=== PATIENT | female | born 1965 | race Caucasian/White ===

== ENCOUNTER 2016-12-01 13:38 | Emergency (ER) | payer OTHER ==
[2016-12-01 13:44] VITALS: TEMP 97.2; BMI 27.4
--- NOTE | 2016-12-01 14:17 | PDOC ---
History of Present Illness <Ugo Ayala - Last Filed: 12/01/16 17:12> - History of Present Illness Initial Comments: 12/01/16 16:19 Patient is a 51 year old female with no significant medical hx who is presenting to the ED with two days of right hand numbness. Patient complains of numbness localized to her right hand, specifically her right fourth and fifth fingers, with radiation that extends up her mid forearm. The patient states that the numbness worsens in the morning and gets better as the day goes on. Denies recent trauma, headache, lightheadedness, dizziness, shortness of breath , and chest pain. <Nelia Hamilton - Last Filed: 12/01/16 17:21> - General Chief Complaint: Lightheaded Stated Complaint: DIZZINESS Time Seen by Provider: 12/01/16 14:16 Past History - Past Medical History Other medical history: DENIES. - Psycho/Social/Smoking Cessation Hx Suicidal Ideation: No Smoking History: Never smoked <Ugo Ayala - Last Filed: 12/01/16 17:12> <Nelia Hamilton - Last Filed: 12/01/16 17:21> - Past Medical History Allergies/Adverse Reactions: Allergies Allergy/AdvReac Type Severity Reaction Status Date / Time Penicillins Allergy Intermediate Rash Verified 12/01/16 13:41 Home Medications: Ambulatory Orders NK [No Known Home Medication] 12/01/16 Review of Systems - Review of Systems Comments:: 12/01/16 16:21 GENERAL/CONSTITUTIONAL: No fever or chills. No weakness. HEAD, EYES, EARS, NOSE AND THROAT: No change in vision. No ear pain or discharge. No sore throat. CARDIOVASCULAR: No chest pain or shortness of breath. RESPIRATORY: No cough, wheezing, or hemoptysis. GASTROINTESTINAL: No nausea, vomiting, diarrhea or constipation. GENITOURINARY: No dysuria, frequency, or change in urination. MUSCULOSKELETAL: No joint or muscle swelling or pain. No neck or back pain. SKIN: No rash NEUROLOGIC: Right hand and forearm numbness. No headache, vertigo, loss of consciousness, or change in strength. <Nelia Hamilton - Last Filed: 12/01/16 17:21> *Physical Exam - Vital Signs Last Vital Signs Temp Pulse Resp BP Pulse Ox 97.2 F L 74 19 130/75 100 12/01/16 13:41 12/01/16 13:41 12/01/16 13:41 12/01/16 13:41 12/01/16 13:41 <Ugo Ayala - Last Filed: 12/01/16 17:12> - Vital Signs Last Vital Signs Temp Pulse Resp BP Pulse Ox 97.2 F L 74 19 130/75 100 12/01/16 13:41 12/01/16 13:41 12/01/16 13:41 12/01/16 13:41 12/01/16 13:41 - Physical Exam Comments: 12/01/16 16:22 GENERAL: Awake, alert, and fully oriented, in no acute distress HEAD: No signs of trauma EYES: PERRLA, EOMI, sclera anicteric, conjunctiva clear ENT: Auricles normal inspection, hearing grossly normal, nares patent, oropharynx clear without exudates. Moist mucosa NECK: Normal ROM, supple, no lymphadenopathy, JVD, or masses LUNGS: Breath sounds equal, clear to auscultation bilaterally. No wheezes, and no crackles HEART: Regular rate and rhythm, normal S1 and S2, no murmurs, rubs or gallops ABDOMEN: Soft, nontender, normoactive bowel sounds. No guarding, no rebound. No masses EXTREMITIES: Normal range of motion, no edema. No clubbing or cyanosis. No cords, erythema, or tenderness NEUROLOGICAL: Cranial nerves II through XII grossly intact. Normal speech, normal gait SKIN: Warm, Dry, normal turgor, no rashes or lesions noted. ENDOCRINE: No increased thirst. No abnormal weight change. HEMATOLOGIC/LYMPHATIC: No anemia, easy bleeding, or history of blood clots. ALLERGIC/IMMUNOLOGIC: No hives or skin allergy. <Nelia Hamilton - Last Filed: 12/01/16 17:21> ED Treatment Course - LABORATORY CBC & Chemistry Diagram: 12/01/16 14:45 12/01/16 14:45 <Ugo Ayala - Last Filed: 12/01/16 17:12> - LABORATORY CBC & Chemistry Diagram: 12/01/16 14:45 12/01/16 14:45 - ADDITIONAL ORDERS Additional order review: Laboratory Results 12/01/16 12/01/16 14:45 14:45 INR 1.20 H Sodium 143 Potassium 3.9 Chloride 108 H Carbon Dioxide 28 Anion Gap 7 L BUN 18 Creatinine 0.6 Creat Clearance w eGFR > 60 Random Glucose 83 Calcium 9.1 Total Bilirubin 0.4 AST 12 L ALT 21 Alkaline Phosphatase 81 Creatine Kinase 66 Troponin I < 0.02 Total Protein 7.1 Albumin 3.9 12/01/16 14:45 RBC 4.20 MCV 91.5 MCHC 33.2 RDW 13.4 MPV 8.3 Neutrophils % 60.8 Lymphocytes % 25.5 Monocytes % 9.0 Eosinophils % 3.9 Basophils % 0.8 - RADIOLOGY Radiograph Interpretation: 12/01/16 17:19 Chest X-Ray Impression: No acute disease. Reported By: Russel Mcwilliams MD Head CT Impression: No evidence of acute intracranial pathology. Reported By: Russel Mcwilliams MD Cervical Spine CT Impression: See discussion. No gross disc herniation or spinal canal stenosis is identified. Correlate clinically and if needed further evaluation with MRI of the cervical spine with the study of choice. Reported By: Blair Villafuerte MD <Nelia Hamilton - Last Filed: 12/01/16 17:21> *DC/Admit/Observation/Transfer - Discharge Dispostion Admit: No - Attestations Physician Attestion: 12/01/16 14:16 I, Dr. Ugo Ayala, attest that this document has been prepared under my direction and personally reviewed by me in its entirety. I further attest, that it accurately reflects all work, treatment, procedures and medical decision -making performed by me. <Ugo Ayala - Last Filed: 12/01/16 17:12> - Attestations Scribe Attestion: 12/01/16 16:22 Documentation prepared by Nelia Hamilton, acting as medical reception specialist for Ugo Ayala MD. <Nelia Hamilton - Last Filed: 12/01/16 17:21> Diagnosis at time of Disposition: Paresthesia - Discharge Dispostion Disposition: HOME Condition at time of disposition: Good - Referrals Referrals: Laith Pretty MD [Primary Care Provider] - - Patient Instructions Printed Discharge Instructions: DI for Numbness/tingling Additional Instructions: Maha - Sorry that you are experiencing this right now. All of your tests here today are normal.. Follow up with your doctor later this week so that they can complete an outpatient work up. Return to us if any problems. Desmond- Dr. Ugo Ayala
[2016-12-01 15:03] LABS: BASOPHIL 0.8 % (0-2.0); EOSINOPHIL 3.9 % (0-4.5); MCH 30.4 pg (25.7-33.7); MCHC 33.2 g/dl (32.0-36.0); MEAN CELL VOLUME 91.5 fl (80-96); MEAN PLT VOLUME 8.3 fl (7.5-11.1); NEUTROPHILS 60.8 % (42.8-82.8); PLATELET COUNT 196 K/MM3 (134-434); RDW 13.4 % (11.6-15.6); WHITE BLOOD COUNT 6.7 K/mm3 (4.0-10.0)
[2016-12-01 15:29] LABS: ALBUMIN 3.9 g/dl (3.4-5.0); ANION GAP 7 (8-16); BILIRUBIN,TOTAL 0.4 mg/dL (0.2-1.0); CALCIUM 9.1 mg/dL (8.5-10.1); CO2 28 mmol/L (21-32); CREATININE 0.6 mg/dL (0.55-1.02); GLUCOSE,RANDOM 83 mg/dL (74-106); SGOT/AST 12 U/L (15-37); SGPT/ALT 21 U/L (12-78); TOT PROT 7.1 g/dl (6.4-8.2)
[2016-12-01 15:32] LABS: ALK PHOS 81 U/L (45-117); TROPONIN I < 0.02 ng/ml (0.00-0.05)
[2016-12-01 15:38] LABS: INR 1.2 (0.82-1.09); PROTHROMBIN TIME (PATIENT) 13.2 SEC (9.98-11.88)
[2016-12-01 17:30] VITALS: BP 121/61; PULSE 70
--- NOTE | 2016-12-02 16:41 | EKG ---
Test Reason : Blood Pressure : / mmHG Vent. Rate : 049 BPM Atrial Rate : 049 BPM P-R Int : 154 ms QRS Dur : 078 ms QT Int : 450 ms P-R-T Axes : 070 048 050 degrees QTc Int : 406 ms SINUS BRADYCARDIA OTHERWISE NORMAL ECG NO PREVIOUS ECGS AVAILABLE Confirmed by MD MOMO, NESS ([id number]) on 12/02/2016 4:40:40 PM Referred By: Confirmed By:NESS BARR MD
== END 2016-12-01 17:27 | disposition home or self-care (01) ==
LOC: JER 13:38
DX: R20.8 Other disturbances of skin sensation (principal)
CPT/HCPCS: 36415; 70450-TC; 71010-TC; 72125-TC; 80053; 82550; 84484; 85025; 85610; 93005; 93010; 99283-25

== ENCOUNTER 2018-07-04 20:56 | Emergency (ER) | payer OTHER ==
[2018-07-04 21:06] VITALS: BP 140/78; PULSE 78; TEMP 97.2; BMI 26.9
--- NOTE | 2018-07-04 21:16 | PDOC ---
Rapid Medical Evaluation Chief Complaint: Lightheaded Time Seen by Provider: 07/04/18 21:04 Medical Evaluation: Allergies Allergy/AdvReac Type Severity Reaction Status Date / Time Penicillins Allergy Intermediate Rash Verified 12/14/16 20:53 Vital Signs Temp Pulse Resp BP Pulse Ox 97.2 F L 78 16 140/78 99 07/04/18 21:04 07/04/18 21:04 07/04/18 21:04 07/04/18 21:04 07/04/18 21:04 07/04/18 21:06 I have performed a brief in-person evaluation of this patient. The patient presents with a chief complaint of:h/o anxiety disorder and HTN present with left flank pain and dizziness started 3 days ago and worsening today. no N/V Pertinent physical exam findings: patient hyperventilating . abd : soft NT/ND. no flank pain on exam. no rebound or guarding. heart: RRR. no murmurs. lungs: CTA I have ordered the following:UA/Ucx. utox. KUB The patient will proceed to the ED for further evaluation. 07/04/18 21:11 Discharge Disposition - Diagnosis Left flank discomfort - Referrals Referrals: Laith Pretty MD [Primary Care Provider] - - Patient Instructions - Post Discharge Activity
[2018-07-04] MEDS ORDERED: SODIUM CHLORIDE 1,000 ML IV STA (21:38)
[2018-07-04] MEDS ORDERED: MECLIZINE HCL 25 MG TABLET (FP) PO ONE (21:39)
[2018-07-04] MEDS ORDERED: MECLIZINE HCL 25 MG TABLET (FP) ONE (21:46)
--- NOTE | 2018-07-04 21:57 | PDOC ---
History of Present Illness - General Chief Complaint: Lightheaded Stated Complaint: Lightheaded Time Seen by Provider: 07/04/18 21:04 History Source: Patient, Old Records Exam Limitations: No Limitations - History of Present Illness Initial Comments: 07/04/18 21:51 HISTORY OF PRESENT ILLNESS: 52-year-old woman past medical history of hypertension and anxiety who presents emergency Department with 3 days of dizziness. Patient states she was in her usual state of health until 07/01 when she began to experience a room spinning sensation or "like I was standing on a boat." Patient states the symptoms have waxed and waned over the 3 days but have never completely resolved. Patient states she also has left flank pain which started approximately same time as the dizziness. Patient states she has similar episode approximately 5 months ago was evaluated by her primary doctor who obtained a CAT scan and MRI which the patient states were normal. Patient has been prescribed nadolol but has not been taking her medications as she does not get a restful sleep. She denies fevers, chills, headaches, blurry vision, chest pain, shortness of breath, nausea, vomiting. No recent travel or sick contacts. PAST MEDICAL HISTORY: hypertension and anxiety SURGICAL HISTORY: Denies ALLERGIES: penicillin REVIEW OF SYSTEMS General/Constitutional: Denies fever or chills. Denies weakness, weight change. HEENT: Denies change in vision. Denies ear pain or discharge. Denies sore throat. Cardiovascular: Denies chest pain or shortness of breath. Respiratory: Denies cough, wheezing, or hemoptysis. Gastrointestinal: Denies nausea, vomiting, diarrhea or constipation. Denies rectal bleeding. Genitourinary: Denies dysuria, frequency, or change in urination. +Left flank pain. Musculoskeletal: Denies joint or muscle swelling or pain. Denies neck or back pain. Skin and breasts: Denies rash or easy bruising. Neurologic: Denies headache, loss of consciousness, or loss of sensation. + Vertigo Psychiatric: Denies depression or anxiety. Endocrine: Denies increased thirst. Denies abnormal weight change. Hematologic/Lymphatic: Denies anemia, easy bleeding, or history of blood clots. Allergic/Immunologic: Denies hives or skin allergy. Denies latex allergy. PHYSICAL EXAM General Appearance: Well-appearing, appropriately dressed. No apparent distress , no intoxication. HEENT: EOMI, PERRLA, normal ENT inspection, normal voice, TMs normal, pharynx normal. No conjunctival pallor. No photophobia, scleral icterus. Neck: Supple. Trachea midline. No tenderness, rigidity, carotid bruit, stridor , lymphadenopathy, or thyromegaly. Respiratory/Chest: Lungs CTAB. No shortness of breath, respiratory distress, accessory muscle use. No crackles, rales, rhonchi, stridor, wheezing, dullness. Left anterior 7th rib chest tenderness Cardiovascular: RRR. S1, S2. No JVD, murmur, bradycardia, tachycardia. Vascular Pulses: Dorsalis-Pedis (R): 2+, Dorsalis-Pedis (L): 2+ Gastrointestinal/Abdominal: Normal bowel sounds. Abdomen soft, non-distended. No tenderness or rebound tenderness. No organomegaly, pulsatile mass, guarding, hernia, hepatomegaly, splenomegaly. Lymphatic: No adenopathy, tenderness. Musculoskeletal/Extremities: Normal inspection. FROM of all extremities, normal capillary refill. Pelvis Stable. No CVA tenderness. No tenderness to extremities, pedal edema, swelling, erythema or deformity. Integumentary: Appropriate color, dry, warm. No cyanosis, erythema, jaundice or rash Neurologic: public message service supervisor II-XII intact. Fully oriented, alert. Appropriate mood/affect. Motor strength 5/5. No appreciable EOM palsy, facial droop or sensory deficit. Negative Dunlap-Hallpike. Past History - Past Medical History Allergies/Adverse Reactions: Allergies Allergy/AdvReac Type Severity Reaction Status Date / Time Penicillins Allergy Intermediate Rash Verified 07/04/18 21:11 Home Medications: Ambulatory Orders Meclizine HCl [Antivert -] 25 mg PO QID #120 tablet 07/05/18 COPD: No - Suicide/Smoking/Psychosocial Hx Smoking History: Never smoked Have you smoked in the past 12 months: No Information on smoking cessation initiated: No Hx Alcohol Use: No Drug/Substance Use Hx: No *Physical Exam - Vital Signs Last Vital Signs Temp Pulse Resp BP Pulse Ox 97.2 F L 78 16 140/78 99 07/04/18 21:04 07/04/18 21:04 07/04/18 21:04 07/04/18 21:04 07/04/18 21:04 Heart Score/ECG Review - History History: Slightly suspicious - Electrocardiogram EKG: Normal - Age Age: 45-65 - Risk Factors Risk Factors Heart Score: Yes Hx Hypertension Based on the list above the patient has:: 1-2 risk factors - Troponin Troponin: </= normal limit - Score Heart Score - Total: 2 ED Treatment Course - LABORATORY CBC & Chemistry Diagram: 07/04/18 22:15 07/04/18 23:59 - RADIOLOGY Radiology Studies Ordered: Category Date Time Status CHEST X-RAY PORTABLE* [RAD] Stat Radiology 07/04/18 21:38 Ordered Medical Decision Making - Medical Decision Making 07/04/18 21:57 A/P: 52-year-old woman with history of anxiety and hypertension with 3 days of dizziness and left flank pain PERRLA. EOMI Cranial nerves II through XII grossly intact Steady gait Negative Dunlap-Hallpike No nystagmus present Left anterior 7th rib TTP Abdomen soft nontender nondistended DDx: Infection, renal calculi, ACS, vertigo, arrhythmia Labs including cardiac profile, urine, EKG, chest x-ray, meclizine, normal saline 07/04/18 23:06 Chest x-rays read by me: Angles clear. No focal infiltrates consolidations present. Cardiac silhouette is within normal limits. Trachea midline. No active pulmonary disease present. No significant change from x-ray performed 12/01/16. 07/05/18 01:07 EKG is sinus rhythm with rate of 56. No ST depressions or ST elevations noted. No T-wave inversions noted. Normal intervals present. Grossly unchanged from EKG performed 12/01/16. Laboratory testing unremarkable with normal troponin. Patient is currently free of dizziness after receiving 1 L fluids and meclizine. Most likely BPPV. I will discharge the patient home with prescription for meclizine and instructions to follow-up with her primary doctor within 7 days. Patient verbalizes understanding of instructions and is in agreement with the current plan. *DC/Admit/Observation/Transfer Diagnosis at time of Disposition: BPPV (benign paroxysmal positional vertigo) Qualifiers: Laterality: unspecified laterality Qualified Code(s): H81.10 - Benign paroxysmal vertigo, unspecified ear - Discharge Dispostion Disposition: HOME Condition at time of disposition: Fair Decision to Admit order: No - Prescriptions Prescriptions: Meclizine HCl [Antivert -] 25 mg PO QID #120 tablet - Referrals Referrals: Laith Pretty MD [Primary Care Provider] - - Patient Instructions Additional Instructions: Keep well-hydrated. Take meclizine 25 mg 4 times a day as needed for dizziness. Take Tylenol or Motrin as needed for pain. Follow manufacture's instructions for appropriate dosage. Make an appointment with your primary doctor for reevaluation within the next 7 days. Return to the emergency department for worsening dizziness, headaches, blurry vision, nausea, vomiting or any other concerns. Thank you very much for choosing us to provide your emergent health care needs. - Post Discharge Activity
[2018-07-04 22:32] LABS: BASO % 0.7 % (0-2.0); HEMATOCRIT 39.6 % (32.4-45.2); HEMOGLOBIN 13.4 GM/dL (10.7-15.3); LYMPH % 29.8 % (8-40); MCHC 33.8 g/dl (32.0-36.0); MEAN CELL VOLUME 91.9 fl (80-96); MEAN PLT VOLUME 9.9 fl (7.5-11.1); MONO % 8.7 % (3.8-10.2); NEUT % 56.8 % (42.8-82.8); PLATELET COUNT 273 K/MM3 (134-434); RBC 4.31 M/mm3 (3.60-5.2); RDW 12.9 % (11.6-15.6); WHITE BLOOD COUNT 6.6 K/mm3 (4.0-10.0)
[2018-07-04 22:37] LABS: URINE APPEARANCE CLEAR; URINE BILIRUBIN NEGATIVE (<2.0 mg/dL); URINE COLOR LTYELLOW; URINE GLUCOSE (UA) NEGATIVE (NEGATIVE); URINE KETONE NEGATIVE (NEGATIVE); URINE NITRITE NEGATIVE (NEGATIVE); URINE PROTEIN NEGATIVE (NEGATIVE); URINE UROBILINOGEN NEGATIVE mg/dL (0.2-1.0)
[2018-07-04 22:39] LABS: HCG,QUALITATIVE URINE Negative
[2018-07-04 22:43] LABS: COCAINE, UR NEGATIVE ng/ml (CUTOFF=300); METHADONE, UR NEGATIVE ng/ml (CUTOFF=300); OPIATES, URI NEGATIVE ng/ml (CUTOFF=300); PHENCYCLIDINE,URINE NEGATIVE ng/ml (CUTOFF=25); URINE AMPHETAMINES NEGATIVE ng/ml (CUTOFF=500); URINE BARBITURATES NEGATIVE ng/ml (CUTOFF=200); URINE BENZODIAZEPINES NEGATIVE ng/ml (CUTOFF=200)
[2018-07-04 22:43] LABS: URINE LEUK ESTERASE 1+ (NEGATIVE)
[2018-07-04 22:54] LABS: EPI CELLS RARE /HPF (FEW); URINE BACTERIA RARE /hpf (NONE SEEN)
[2018-07-05 00:38] LABS: INR 1.25 (0.83-1.09); PROTHROMBIN TIME (PATIENT) 14.1 SEC (9.7-13.0)
[2018-07-05 00:56] LABS: ALBUMIN 3.3 g/dl (3.4-5.0); ALK PHOS 77 U/L (45-117); ANION GAP 6 MMOL/L (8-16); BILIRUBIN,TOTAL 0.2 mg/dL (0.2-1); BLOOD UREA NITROGEN 15 mg/dL (7-18); CALCIUM 8.5 mg/dL (8.5-10.1); CHLORIDE 112 mmol/L (98-107); CO2 25 mmol/L (21-32); CREATININE 0.6 mg/dL (0.55-1.3); GLUCOSE,RANDOM 120 mg/dL (74-106); POTASSIUM 3.8 mmol/L (3.5-5.1); SGOT/AST 13 U/L (15-37); SGPT/ALT 15 U/L (13-61); SODIUM 143 mmol/L (136-145); TOT PROT 6.4 g/dl (6.4-8.2)
--- NOTE | 2018-07-05 09:34 | EKG ---
Test Reason : Blood Pressure : / mmHG Vent. Rate : 056 BPM Atrial Rate : 056 BPM P-R Int : 174 ms QRS Dur : 074 ms QT Int : 420 ms P-R-T Axes : 065 042 043 degrees QTc Int : 405 ms POOR DATA QUALITY, INTERPRETATION MAY BE ADVERSELY AFFECTED SINUS BRADYCARDIA LOW VOLTAGE QRS NONSPECIFIC T WAVE ABNORMALITY ABNORMAL ECG WHEN COMPARED WITH ECG OF 04-JUL-2018 20:56, VENT. RATE HAS DECREASED BY 33 BPM Confirmed by SAI BENITEZ MD ([id number]) on 07/05/2018 9:33:48 AM Referred By: Confirmed By:SAI BENITEZ MD
== END 2018-07-05 01:18 | disposition home or self-care (01) ==
LOC: JER 20:56
PROC: 3E0337Z Introduction of Electrolytic and Water Balance Substance into Peripheral Vein, Percutaneous Approach (ICD-10-PCS; principal; 2018-07-04)
DX: H81.10 Benign paroxysmal vertigo, unspecified ear (principal)
CPT/HCPCS: 36415; 71045-TC-FY; 80053; 80307; 81003; 81015; 82550; 84484; 84703; 85025; 85610; 87086; 93005; 93010; 99282-25; J7030

== ENCOUNTER 2020-05-26 17:16 | Emergency (ER) | payer OTHER ==
--- NOTE | 2020-05-26 17:23 | PDOC ---
Rapid Medical Evaluation Time Seen by Provider: 05/26/20 17:22 Medical Evaluation: Allergies Allergy/AdvReac Type Severity Reaction Status Date / Time Penicillins Allergy Intermediate Rash Verified 05/26/20 17:20 05/26/20 17:22 I have performed a brief in-person evaluation of this patient. CC: "I have a dry throat." Seen at yesterday. PE: OP-WNL. No drooling, stridor or voice changes. Orders: nothing Patient to proceed to ED for further evaluation. Discharge Disposition - Diagnosis Dry throat - Referrals - Patient Instructions - Post Discharge Activity
[2020-05-26 17:27] VITALS: BP 117/82; PULSE 69; TEMP 97.8; BMI 23.6
--- NOTE | 2020-05-26 17:46 | PDOC ---
History of Present Illness - General Chief Complaint: Sore Throat Stated Complaint: SORE THROAT Time Seen by Provider: 05/26/20 17:22 History Source: Patient Exam Limitations: No Limitations - History of Present Illness Initial Comments: 05/26/20 17:41 54-year-old female past medical history, had four teeth extracted 5 weeks ago presents complaining of painful lump underneath left side of jaw x 1 week. Also complains of throat dryness x 1 week. Denies trauma, fever, chills, weight loss, nausea, vomiting, diarrhea, chest pain, shortness of breath or any other complaint. Patient followed up with an urgent care center 3 days ago and was prescribed clindamycin and prednisone 20 mg x 5 days. Patient plans to follow- up with dental in 1 week. ROS: as above PE: GENERAL: well-appearing, NAD HEAD: NCAT EYES: Pupils equal, round and reactive to light, sclera anicteric, conjunctiva clear ENT: Normal bilateral ear canals, normal bilateral TMs, pharynx: no erythema, no exudate, uvula midline Few missing teeth, no dental abscesses noted, no facial swelling NECK: supple, small tender palpable node to left submandibular area CHEST: nontender RESP: clear, no w/r/r CARDIO: rrr, no m/g/r ABD: +BS, soft, nontender, non distended BACK: no midline spinal ttp, no CVAT EXTREMITIES: Normal range of motion, no edema NEUROLOGICAL: Normal speech, normal gait SKIN: Warm, Dry Is this a multiple visit Asthma Patient?: No Past History - Medical History Allergies/Adverse Reactions: Allergies Allergy/AdvReac Type Severity Reaction Status Date / Time Penicillins Allergy Intermediate Rash Verified 05/26/20 17:20 Home Medications: Ambulatory Orders Meclizine HCl [Antivert -] 25 mg PO QID #120 tablet 07/05/18 COPD: No HTN: Yes - Immunization History Immunization Up to Date: Yes - Psycho-Social/Smoking History Smoking History: Never smoked Have you smoked in the past 12 months: No - Substance Abuse Hx (Audit-C & DAST Scrn) How often the patient has a drink containing alcohol: Never Score: In Men: 4 or > Positive; In Women: 3 or > Positive: 0 Screen Result (Pos requires Nsg. Audit-10AR): Negative In the last yr the pt used illegal drug/Rx for NonMed reason: No Score: Yes response is considered Positive: 0 Screen Result (Positive result requires Nsg. DAST-10): Negative *Physical Exam - Vital Signs Last Vital Signs Temp Pulse Resp BP Pulse Ox 97.8 F 69 18 117/82 100 18 17:21 05/26/20 17:21 05/26/20 17:21 05/26/20 17:21 05/26/20 17:21 Medical Decision Making - Medical Decision Making 05/26/20 17:46 54-year-old female past medical history, had four teeth extracted 5 weeks ago presents complaining of painful lump underneath left side of jaw x 1 week. Also complains of throat dryness x 1 week. Denies trauma, fever, chills, weight loss, nausea, vomiting, diarrhea, chest pain, shortness of breath or any other complaint. Patient followed up with an urgent care center 3 days ago and was prescribed clindamycin and prednisone 20 mg x 5 days. Patient plans to follow-u p with dental in 1 week. Advised patient to complete course of clindamycin and prednisone as directed Offered p.o. ibuprofen in the ED however patient declined and agrees to take ibuprofen at home Advised patient to follow-up with ENT within 1 week Return precautions discussed Patient understands plan Discharge - Discharge Information Problems reviewed: Yes Clinical Impression/Diagnosis: Dry throat Condition: Stable Disposition: HOME - Admission No - Follow up/Referral Referrals: Laith Pretty MD [Primary Care Provider] - - Patient Discharge Instructions Additional Instructions: Complete course of clindamycin and prednisone as directed Take ibuprofen 600 mg 1 tablet every 6 hours as needed for pain Follow-up with your dentist next week Schedule an appointment with ENT within 1 week If you develop fever, chills, worsening pain, facial swelling or any concerning symptom return to ED - Post Discharge Activity
== END 2020-05-26 17:50 | disposition home or self-care (01) ==
LOC: JER 17:16 → JERFT 17:16
DX: R68.2 Dry mouth, unspecified (principal)
CPT/HCPCS: 99282-25

== ENCOUNTER 2021-08-07 13:15 | Emergency (ER) | payer OTHER ==
[2021-08-07 13:37] VITALS: BP 114/73; PULSE 60; TEMP 97.5; BMI 24.8
[2021-08-07] MEDS ORDERED: SODIUM CHLORIDE 0.9% 500 ML INFUS.BAG IV ONE (15:16)
[2021-08-07] MEDS ORDERED: ACETAMINOPHEN 1000 MG/100 ML VIAL IVPB ONE (15:16)
[2021-08-07] MEDS ORDERED: ACETAMINOPHEN INJECTION 100 ML IVPB ONE (16:14)
== END 2021-08-07 16:35 | disposition left against medical advice (07) ==
LOC: JER 13:15
DX: R00.2 Palpitations (principal)
CPT/HCPCS: 71046-TC-FY; 93005; 93010; 99284-25